=== PATIENT | male | born 1960 | race Caucasian/White ===

== ENCOUNTER 2016-11-08 10:17 | Inpatient (IN) | payer OTHER ==
[~2016-11-08] VITALS: Ht 167.6 cm; Wt 97.1 kg
--- NOTE | ~2016-11-08 | DS ---
Unit #: [id number] #: [id number] Patient: CECILLE GONZALEZ [id number] [address] [address] [id number] I MR#: [id number] NAME: CECILLE GONZALEZ ROOM: 224 Age: 56 Sex: M Admission Date: 11/08/2016 : 1960 Discharge Date: 11/11/2016 Attending Physician: Ludivina Russo M.D. [facility] DISCHARGE SUMMARY DISCHARGE DIAGNOSES 1. Right foot shallow ulcer on the plantar surface. Methicillin-resistant Staphylococcus aureus positive. 2. History of seizure. 3. Diabetes mellitus type 2, uncontrolled, with peripheral neuropathy. 4. Hypertension. 5. History of hydrocephalus status post ventriculoperitoneal shunt. 6. Recent history of right upper extremity axillary abscess status post incision and drainage. 7. Mild transaminitis. CONSULTATIONS Dr. Sexton. PROCEDURES The patient had incision and drainage of the right plantar abscess. DIAGNOSTIC TESTING LAB DATA: Wound cultures are growing MRSA. WBC 8.3. ALLERGIES None. DISCHARGE MEDICATIONS 1. Bactroban applied topically b.i.d. 2. Neurontin 300 p.o. b.i.d. 3. Zonegran 100 mg p.o. b.i.d. 4. Lopressor 50 daily. 5. Tradjenta 5 mg p.o. daily. 6. Lortab 7.5 mg q.4 p.r.n. pain. 7. Dakin solution applied topically daily. 8. Bactrim DS 1 tablet p.o. b.i.d. for 14 days. HOSPITALIZATION COURSE A 56 year old admitted because of right foot wound. Right foot shallow ulcer with abscess status post I and D, MRSA. The patient was started on broad-spectrum antibiotics. The patient will be discharged on Bactrim for 14 days as per orthopedic recommendation. Follow with Dr. Max in 1 week time. Diabetes mellitus type 2, well controlled. Continue with current home medications. The patient has peripheral neuropathy. Unit #: [id number] #: [id number] Patient: CECILLE GONZALEZ History of seizure. Continue with Zonegran. DISCHARGE PLAN 1. Discharge home. 2. Follow with family physician in 1 week. 3. Follow with Dr. Max in 1 week. Dictated by... Rosi Gutiérrez TD: 11/11/2016 15:18 JOB #: [id number] DISCHARGE SUMMARY Page 1 of 1 X Ludivina Russo MD X DISCHARGE SUMMARY
--- NOTE | ~2016-11-08 | OR ---
Unit #: [id number] #: [id number] Patient: CECILLE GONZALEZ [id number] [address] [address] [id number] I MR#: [id number] NAME: CECILLE GONZALEZ ROOM: 224 Date of Procedure: 11/09/2016 Admission Date: 11/08/2016 Surgeon: Anuj Max M.D. : 1960 Attending Physician: Ludivina Russo M.D. [facility] OPERATIVE REPORT PREOPERATIVE DIAGNOSIS Right plantar foot abscess. POSTOPERATIVE DIAGNOSIS Right plantar foot abscess. PROCEDURE PERFORMED Incision and drainage of right plantar foot abscess. SOCIAL WORK COORDINATOR None. ANESTHESIA General with LMA. COMPLICATIONS None. SPECIMENS Culture swabs sent from right foot abscess. DRAINS None. SURGICAL IMPLANTS Quarter-inch iodoform. INDICATION FOR PROCEDURE Cecille is a 56-year-old male with diabetes, who developed a blister on the plantar surface of the mid foot followed by significant swelling, erythema, and pain. He is brought to the emergency room, where he was noted to have a probable abscess and cellulitis. He was started on antibiotics. Orthopedics was consulted. Based on his exam, it was felt he would benefit from lancing the abscess and packing open as needed. The patient wished to proceed with surgery. Risks, benefits, and alternatives of surgery were discussed with the patient. Informed consent was obtained. Risks include, but not limited to, persistent infection, bleeding, nerve injury, blood clots, risks associated with anesthesia, need for further surgery, osteomyelitis, and possibly . DESCRIPTION OF PROCEDURE On 11/09/2016, the patient was seen in the preoperative holding area, Unit #: [id number] #: [id number] Patient: CECILLE GONAZLEZ where his surgical site was marked. Scheduled antibiotics were received. H and P and consent updated. The patient was taken to the operating room and provided general anesthesia. Right lower extremity was prepped and draped in typical sterile fashion. Time-out was performed confirming the correct surgical site and procedure. At this point, the plantar surface of the midfoot just proximal to the second and third metatarsals was evaluated. There was a quarter-sized blister with no open wound. The skin was delaminated at the blister site. Incision was made through this blistered skin. Purulent drainage noted. Underlying new skin developing and a small punctate wound traveling deep to the subcutaneous tissues with some purulent drainage. Culture swabs were sent. The skin was excised around the periphery of the blister. The wound was then thoroughly irrigated. The wound was probed and no other pockets identified of abscess fluid. The deep tissues were irrigated with normal saline containing bacitracin. Once adequate debridement is completed, hemostasis was noted. The small punctate wound was packed with quarter-inch iodoform. Xeroform, 4x4s, Kerlix, and Bayron bandage were placed. The patient was subsequently awakened from general anesthesia in stable condition and taken to PACU postoperatively. POSTOPERATIVE PLAN The patient will return to his hospital room. He will remain on IV antibiotics. We will check cultures. He can be heel weightbearing. No complications were encountered during the surgical procedure. Dictated by... Anuj Max M.D. ALEX/maxim TD: 11/09/2016 17:03 JOB #: [id number] OPERATIVE REPORT Page 1 of 1 X X PROCEDURE OPERATIVE NOTE
--- NOTE | ~2016-11-08 | HP ---
Unit #: [id number] #: [id number] Patient: CECILLE GONZALEZ [id number] [address] [address] [id number] I MR#: [id number] NAME: CECILLE GONZALEZ ROOM: 14055 Age: 56 Sex: M Admission Date: 11/08/2016 : 1960 Attending Physician: Maliha Kumari M.D. Primary Care Physician: [facility] HISTORY AND PHYSICAL CHIEF COMPLAINT Right foot pain. HISTORY OF PRESENT ILLNESS The patient is a 56-year-old male with a past medical history of diabetes with peripheral neuropathy, seizure disorder, hydrocephalus, and hypertension, who presented to the emergency department for evaluation of the above. The patient states that he may have stepped on something in his house when he walking barefoot. He is not sure, but he thought he felt a "stick." He states that he does a lot of walking to the bus and noticed increased pain in his foot. He ultimately developed a blister that became progressively worse. He denies any fever, no cough or cold symptoms, no chest pain or difficulty breathing, and no vomiting or diarrhea. He does have diabetes and blood sugars have been in the 90-120 range. Also of note, the patient was recently treated for an abscess in the right axillary/upper extremity area. He underwent incision and drainage in his primary care physician's office and was subsequently placed on Keflex. He completed a 10-day course of Keflex. Today, he saw his primary care physician regarding the foot and was told to come to the emergency department for further evaluation. In the emergency department, a right foot x-ray was done and showed no osseous abnormality. White blood cell count is 15.7. He was given vancomycin and Zosyn in the emergency department, as well as Tdap. He is being admitted to [facility] for evaluation and further treatment. PAST MEDICAL HISTORY 1. Hospitalized at [facility] in January 2016. The patient states that he was "found down." He was subsequently found to have hydrocephalus and underwent GEMOLOGIST shunt placement. He is not sure if he had a seizure during this event. He is followed by [facility]. There are no records regarding this admission. 2. Seizure disorder. The patient states that he had seizures from the age of 17 to 43 and was on Dilantin. He then went multiple years without any seizures. He was then placed on Zonegran in January 2016 following GEMOLOGIST shunt placement. 3. Diabetes with peripheral neuropathy. 4. Hypertension. PAST SURGICAL HISTORY 1. GEMOLOGIST shunt placement. Unit #: [id number] #: [id number] Patient: CECILEL GONZALEZ 2. Surgery for hydrocele. SOCIAL HISTORY The patient lives by himself. He is working part-time doing "phone work." There is no tobacco, alcohol, or illicit drug use. FAMILY HISTORY Notable for his mother having diabetes. ALLERGIES No known allergies. HOME MEDICATIONS 1. Keflex 750 t.i.d. 2. Gabapentin 300 mg twice daily. 3. Invokana 100 mg daily. 4. Magnesium 400 mg twice daily. 5. Glucophage 500 mg t.i.d. 6. Lopressor 50 mg daily. 7. Tradjenta 5 mg daily. 8. Zonegran 100 mg twice daily. REVIEW OF SYSTEMS A complete review of systems is negative except as indicated in the HPI. The patient states that he has lost almost 100 pounds in the past nine months which he attributes to being more active and walking to the bus. PHYSICAL EXAMINATION VITAL SIGNS: Temperature is 97.9, pulse 83, respirations 18, blood pressure 125/81, and oxygen saturation is 98% on room air. GENERAL: Patient is a male who is awake, alert, and in no acute distress. HEENT: Head is atraumatic. He does have a well-healed surgical scar in the right scalp area. Mucous membranes are moist. NECK: Supple. Trachea is midline. CARDIOVASCULAR: Regular rate and rhythm. LUNGS: Clear to auscultation bilaterally with no increased work of breathing. ABDOMEN: Soft and nontender with bowel sounds present in all four quadrants. EXTREMITIES: No edema involving the ankles. The plantar aspect of the right foot demonstrates an approximately dime-sized area of fluctuance with surrounding erythema that extends to the dorsal aspect of the foot. The patient is tender to palpation in this area. The right axillary area demonstrates an area consistent with healing incision and drainage wound. NEUROLOGIC: Patient is awake and alert. He follows commands. PSYCHIATRIC: Mood and affect are normal. Patient is cooperative. SKIN: Skin of examined areas is warm and dry. DIAGNOSTIC STUDIES LABORATORY: Complete blood count notable for white blood cell count of 15.7. Basic metabolic panel is normal. IMAGING: Right foot x-ray shows no osseous abnormality. ASSESSMENT The patient is a 56-year-old male with: 1. Right foot abscess/cellulitis. The patient received vancomycin and Unit #: [id number] #: [id number] Patient: CECILLE GONZALEZ in the emergency department, as well as Tdap. 2. Leukocytosis with a white blood cell count of 15.7. No additional systemic inflammatory response syndrome criteria are noted. 3. Diabetes with glucose of 109. 4. Peripheral neuropathy. 5. Seizure disorder maintained on Zonegran. The patient's last seizure was possibly in January 2016. 6. History of hydrocephalus, status post ventriculoperitoneal shunt. 7. Hypertension. 8. Recent history of right upper extremity/axillary abscess, status post incision and drainage and treatment with Keflex. PLAN 1. Admit to med/surg. 2. Healthy-heart, consistent carbohydrate diet. 3. N.p.o. after midnight for possible surgical intervention. 4. Blood cultures x2. 5. Wound culture and sensitivity. 6. Vancomycin IV and Zosyn IV pending further workup. 7. Consult Dr. Michael regarding foot abscess. 8. P.r.n. morphine. 9. P.r.n. Zofran. 10. Hemoglobin A1c. 11. Low-dose sliding scale insulin with Accu-Cheks. 12. Check magnesium level. 13. Repeat labs in the morning. 14. SCDs for DVT prophylaxis. 15. Additional workup and consultants based on above. 1. Dictated by Rosi Lutz/jaspreet TD: 11/08/2016 14:10 JOB #: [id number] HISTORY AND PHYSICAL Page 1 of 1 X Maliha Kumari MD X HISTORY AND PHYSICAL
--- NOTE | ~2016-11-08 | CR127 ---
[facility] A Service of [facility] RADIOLOGY TEXT RESULTS PATIENT: CECILLE GONZALEZ LOCATION: [facility] : [birth year] UNIT #: [id number] AGE: [address]: Ludivina Russo MD SEX: M ORDER DR: [id number] [facility] [address] [facility] [place], [place] [address] [id number] I MR#: [id number] Acc #: [id number] NAME: CECILLE GONZALEZ : 1960 SEX: M STUDY DATE/TIME: 11/08/2016 11:06 UNIT: [facility] ROOM: [facility] STUDY DESCRIPTION: CR Foot Complete Min 3 View Rt Attending Physician: Maliha Kumari M.D. Ordering Physician: Haile Dodson M.D. [facility] MEDICAL IMAGING REPORT This report is preliminary unless electronic signature is present EXAMINATION Three views of the right foot. DATE 11/08/2016, 11:06. HISTORY 56-year-old male with distal bottom of right foot pain, raised hard nodule. Patient states symptoms present for 5 days. Unsure if he stepped on something. COMPARISON None. FINDINGS No fracture. No dislocation. No unexpected retained radiopaque foreign body. Mild spurring at the dorsum of the midfoot. Small plantar calcaneal heel spur. Dense calcific atherosclerosis. IMPRESSION 1. No acute osseous abnormality. No retained radiopaque foreign body. 2. Dense calcific atherosclerosis. 3. Mild osteoarthritic changes. Dictated by... Liz Blackman M.D. THIS IS AN ELECTRONICALLY VERIFIED REPORT Liz Blackman M.D. at 11/09/2016 2:20 PM TONJA/дмитрий TD: 11/08/2016 17:13 [facility] A Service of [facility] RADIOLOGY TEXT RESULTS PATIENT: CECILLE GONZALEZ LOCATION: [facility] : [birth year] UNIT #: [id number] AGE: [address]: Ludivina Russo MD SEX: M ORDER DR: JOB #: [id number] MEDICAL IMAGING REPORT Page 1 of 1 COPY
[2016-11-08 12:03] LABS: BASOPHIL# 0.1 X10e3 (0-0.3); BASOPHIL% 0.4 % (0-2.5); HEMATOCRIT 43.9 % (38.0-50.0); HEMOGLOBIN 14.5 gm/dL (13.0-16.0); LYMPHOCYTE# 1.6 X10e3 (1.0-3.5); LYMPHOCYTE% 10.2 % (17.0-45.0); MEAN CORPUSCULAR HEMOGLOBIN 28.8 PG (28-34); MEAN CORPUSCULAR HGB CONC 33.1 g/dL (30-36); MEAN PLATELET VOLUME 7.6 FL (6.5-11.5); MONOCYTE# 1.1 X10e3 (0-1.0); MONOCYTE% 7.3 % (3.0-12.0); NEUTROPHIL# 12.9 X10e3 (1.5-7.1); NEUTROPHIL% 82.1 % (40-75); PLATELET COUNT 284 X10e3 (140-420); RED BLOOD COUNT 5.04 X10e (3.90-5.60); RED CELL DISTRIBUTION WIDTH 14.2 % (11.0-15.5); WHITE BLOOD COUNT 15.7 X10e3 (4.0-10.5)
[2016-11-08 12:05] LABS: DIFF IND YES
[2016-11-08 12:18] LABS: ANISOCYTOSIS SL; PLATELET ESTIMATE NORMAL (NORMAL)
[2016-11-08 12:24] LABS: CALCIUM SERUM 9.2 mg/dL (8.4-10.2); POTASSIUM 4.1 mmol/L (3.5-5.1)
[2016-11-08] MEDS ORDERED: PATIENT'S PHARMACY (12:57)
[2016-11-08] MEDS ORDERED: MAGOX 400400 MG PO (12:58)
[2016-11-08] MEDS ORDERED: INVOKANA100 MG PO (12:58)
[2016-11-08] MEDS ORDERED: KEFLEX750 MG PO (12:58)
[2016-11-08] MEDS ORDERED: GABAPENTIN300 MG PO (12:58)
[2016-11-08] MEDS ORDERED: ZONEGRAN100 M1 PO (12:59)
[2016-11-08] MEDS ORDERED: METFORMIN PO (12:59)
[2016-11-08] MEDS ORDERED: TRADJENTA5 MG PO (12:59)
[2016-11-08] MEDS ORDERED: LOPRESSOR PO (12:59)
[2016-11-09 08:13] LABS: HEMATOCRIT 40.6 % (38.0-50.0); HEMOGLOBIN 13.8 gm/dL (13.0-16.0); MEAN CELL VOLUME 86.3 FL (83-96); MEAN CORPUSCULAR HEMOGLOBIN 29.3 PG (28-34); MEAN CORPUSCULAR HGB CONC 33.9 g/dL (30-36); MEAN PLATELET VOLUME 7.4 FL (6.5-11.5); RED BLOOD COUNT 4.7 X10e (3.90-5.60); RED CELL DISTRIBUTION WIDTH 14.1 % (11.0-15.5); WHITE BLOOD COUNT 10.3 X10e3 (4.0-10.5)
[2016-11-09 08:28] LABS: PROTHROMBIN TIME (PATIENT) 10.7 SECONDS (10.0-11.7)
[2016-11-09 09:14] LABS: BUN/CREATININE RATIO 12.5; CALCIUM SERUM 8.9 mg/dL (8.4-10.2); CREATININE SERUM 0.8 mg/dL (0.6-1.4); GLOM FILT RATE Estimated 101.3 mL/min (>60); MAGNESIUM 2.1 mg/dL (1.6-3.0)
[2016-11-10 06:44] LABS: HEMOGLOBIN 12.9 gm/dL (13.0-16.0); MEAN CELL VOLUME 87.2 FL (83-96); MEAN CORPUSCULAR HEMOGLOBIN 28.8 PG (28-34); MEAN CORPUSCULAR HGB CONC 33.1 g/dL (30-36); MEAN PLATELET VOLUME 7.7 FL (6.5-11.5); RED BLOOD COUNT 4.47 X10e (3.90-5.60); RED CELL DISTRIBUTION WIDTH 14.1 % (11.0-15.5); WHITE BLOOD COUNT 9.5 X10e3 (4.0-10.5)
[2016-11-10 07:33] LABS: ALBUMIN SERUM 3.2 g/dL (3.5-5.0); BILIRUBIN,TOTAL 0.5 mg/dL (0.2-2.0); BUN/CREATININE RATIO 11.11; CALCIUM SERUM 8.9 mg/dL (8.4-10.2); CREATININE SERUM 0.9 mg/dL (0.6-1.4); GLOM FILT RATE Estimated 96.5 mL/min (>60); POTASSIUM 4.2 mmol/L (3.5-5.1); PROTEIN TOTAL SERUM 6.2 g/dL (6.0-8.3)
[2016-11-11 05:28] LABS: HEMATOCRIT 39.6 % (38.0-50.0); HEMOGLOBIN 13.3 gm/dL (13.0-16.0); MEAN CELL VOLUME 86.5 FL (83-96); MEAN CORPUSCULAR HGB CONC 33.6 g/dL (30-36); MEAN PLATELET VOLUME 7.4 FL (6.5-11.5); RED BLOOD COUNT 4.58 X10e (3.90-5.60); RED CELL DISTRIBUTION WIDTH 14.2 % (11.0-15.5); WHITE BLOOD COUNT 8.3 X10e3 (4.0-10.5)
[2016-11-11] MEDS ORDERED: BACTROBAN15 GM TOP (11:41)
[2016-11-11] MEDS ORDERED: BACTRIM DS TAB1 EACH PO (11:42)
[2016-11-11] MEDS ORDERED: LORTAB 7.5-3251 EACH PO (11:42)
== END 2016-11-11 12:19 | disposition home health service (06) | DRG 580 ==
LOC: CED 10:17 → CEDOF 13:15 → CED 13:44 → CEDOF 13:44 → C2A 14:45 → CEDOF 14:45 → C2A 11-09 07:46
PROVIDERS: Emergency Medicine; Family Medicine; Internal Medicine; Orthopaedic Surgery
PROC: 0J9Q0ZZ Drainage of Right Foot Subcutaneous Tissue and Fascia, Open Approach (ICD-10-PCS; principal; 2016-11-09 13:00)
DX: L02.611 Cutaneous abscess of right foot (principal); L03.115 Cellulitis of right lower limb; E11.42 Type 2 diabetes mellitus with diabetic polyneuropathy; E11.65 Type 2 diabetes mellitus with hyperglycemia; I10 Essential (primary) hypertension; G40.909 Epilepsy, unspecified, not intractable, without status epilepticus; R74.0 Nonspecific elevation of levels of transaminase and lactic acid dehydrogenase [LDH]; E66.9 Obesity, unspecified; L97.519 Non-pressure chronic ulcer of other part of right foot with unspecified severity; Z68.34 Body mass index [BMI] 34.0-34.9, adult; B95.62 Methicillin resistant Staphylococcus aureus infection as the cause of diseases classified elsewhere; Z98.2 Presence of cerebrospinal fluid drainage device; Z83.3 Family history of diabetes mellitus; Z79.84 Long term (current) use of oral hypoglycemic drugs
CPT/HCPCS: 36415; 73630; 80048; 80053; 82947; 83036; 83735; 85025; 85027; 85610; 87040; 87070; 87075; 87077; 87186; 87205; 90471; 90715; 96374; 96375; 99284; J1170; J2250; J2270; J2405; J2543; J3010; J3370